=== PATIENT | male | born 1995 | race Caucasian/White ===

== ENCOUNTER → 2024-09-30 06:19 | Day surgery (SDC) | payer OTHER, SELFPAY | LOC: GI 06:19 | PROVIDERS: ATTENDING PHYSICIAN Internal Medicine | DX: K29.70 Gastritis, unspecified, without bleeding (principal); K26.9 Duodenal ulcer, unspecified as acute or chronic, without hemorrhage or perforation; R10.13 Epigastric pain | CPT/HCPCS: 43239; 88305; 88342 ==